=== PATIENT | female | born 2000 | race Caucasian/White ===

== ENCOUNTER 2022-08-10 22:52 | Emergency (ER) | payer MEDICAID, OTHER ==
[~2022-08-10] VITALS: Ht 157.5 cm; Wt 87.0 kg
[2022-08-10] MEDS ORDERED: IBUPROFEN 600MG TABLET PO ONE (23:30)
[2022-08-11 00:57] VITALS: BP 132/74
[2022-08-11] MEDS ORDERED: IBUP-2028 MT (03:37)
== END 2022-08-11 04:14 | disposition home or self-care (01) ==
LOC: ER 22:57
DX: S16.1XXA Strain of muscle, fascia and tendon at neck level, initial encounter (principal); R51.9 Headache, unspecified; V89.2XXA Person injured in unspecified motor-vehicle accident, traffic, initial encounter; Y93.89 Activity, other specified; Y92.89 Other specified places as the place of occurrence of the external cause; Y99.8 Other external cause status
CPT/HCPCS: 72040; 72100; 81025; 99284

== ENCOUNTER 2022-08-17 14:00 | Emergency (ER) | payer OTHER ==
[~2022-08-17] VITALS: Ht 157.5 cm; Wt 86.0 kg
[~2022-08-17 14:00] MED LIST: IBUP-2028 MT
[2022-08-17 14:03] VITALS: BP 111/71
[2022-08-17] MEDS ORDERED: IBUPROFEN 600MG TABLET PO ONE (14:45)
[2022-08-17] MEDS ORDERED: IBUP-2029 MT (15:59)
[2022-08-17 16:38] LABS: CLARITY URINE CLEAR (CLEAR); COLOR URINE YELLOW (YELLOW); KETONES URINE TRACE (NEGATIVE); LEUKOCYTE ESTERASE URINE NEGATIVE (NEGATIVE); NITRITE URINE NEGATIVE (NEGATIVE); OCCULT BLOOD URINE NEGATIVE (NEGATIVE); PROTEIN URINE NEGATIVE (NEGATIVE); SPECIFIC GRAVITY URINE 1.023 (1.005-1.030)
[2022-08-17] MEDS ORDERED: CYCLOBENZAPRINE 10MG TABLET PO ONE (17:00)
== END 2022-08-17 17:16 | disposition home or self-care (01) ==
LOC: ER 14:00
DX: M54.50 Low back pain, unspecified (principal)
CPT/HCPCS: 72100; 81003; 81025; 99284